=== PATIENT | female | born 1950 | race Caucasian/White ===

== ENCOUNTER → 2016-03-21 | Outpatient (CLI) | payer OTHER ==
--- NOTE | 2016-03-21 15:41 | US ---
Ultrasound Pelvis Complete (Transabdominal and Endovaginal) Including Duplex/Doppler Imaging History: N83.299, ovarian cyst identified on outside CT scan. Comparison: None available. Technique: Transabdominal and endovaginal ultrasound images were obtained. Endovaginal images obtain ed for better evaluation of the adnexa. Duplex/Doppler imaging of adnexa. Findings: Uterus is surgically absent from prior hysterectomy. A normal-appearing right ovary is not identified. However, there is a simple cyst in the right adnexa measuring 3.1 x 2.8 x 2.3 cm. Left ovary measures 1.6 x 1 x 0.6 cm. No significant free fluid in the pelvis. Color Doppler flow to both ovaries without torsion. Impression: 1. Right ovarian simple cyst measuring 3.1 x 2.8 x 2.3 cm for which follow-up ultrasound is recommend ed in 2-3 months. 3. Prior hysterectomy. 4. Atrophic left uterus. 4. No ascites.
== END ==
LOC: BRMIMAGING 14:26
PROVIDERS: ATTEND Family Medicine
DX: N83.291 Other ovarian cyst, right side (principal); N85.8 Other specified noninflammatory disorders of uterus
CPT/HCPCS: 76856-PO

== ENCOUNTER → 2017-08-08 | Outpatient (CLI) | payer OTHER | LOC: BRMIMAGING 11:30 | PROVIDERS: ATTEND Family Medicine | DX: Z12.31 Encounter for screening mammogram for malignant neoplasm of breast (principal) ==